=== PATIENT | male | born 1995 | race African-American/Black ===

== ENCOUNTER 2023-02-02 23:43 | Emergency (ER) | payer MEDICARE, OTHER ==
[~2023-02-02] VITALS: Ht 195.6 cm; Wt 68.0 kg
[2023-02-03 00:02] VITALS: BP 147/74; TEMP 98.1; O2SAT 98
== END 2023-02-03 00:48 | disposition home or self-care (01) ==
LOC: ER 23:45 → EDSEX 23:45 → ER 02-03 00:48
DX: I10 Essential (primary) hypertension (principal)